=== PATIENT | male | born 1955 | race Hispanic/Latino ===

== ENCOUNTER 2017-01-25 14:23 | Observation (INO) | payer OTHER ==
[~2017-01-25] VITALS: Ht 165.1 cm; Wt 63.5 kg
--- NOTE | 2017-01-25 15:04 | ED GI/GU/ABDOMINAL COMPLAINT ---
See Addendum History of Present Illness General Chief Complaint: Abdominal Pain/Flank Pain Stated Complaint: ABD PAIN? Source: patient Exam Limitations: language barrier Vital Signs & Intake/Output Vital Signs & Intake/Output Vital Signs Date Time Temp Pulse Resp B/P B/P Pulse O2 O2 Flow FiO2 Mean Ox Delivery Rate 01/25 1938 97.8 62 18 147/90 97 Room Air 01/25 1637 68 16 142/78 98 Room Air 01/25 1430 99.1 96 20 160/98 97 Room Air Allergies Coded Allergies: No Known Allergies (01/25/17) Reconcile Medications No Known Home Medications Triage Note: PT C/O RIGHT LOWER ABDOMINAL PAIN THAT RADIATES INTO RIGHT GROIN. PT STATES HE WAS SEEN FOR IT AND WAS TOLD HE HAS A HERNIA AND TO WAIT TO GET IT RAPAIRED. PT STATES IT HAS GROWN BIGGER. Triage Nurses Notes Reviewed? yes Duration: day(s): Quality/Severity: moderate, sharpness Location: groin Radiation: no radiation Activities at Onset: none Prior Abdominal Problems: none No Modifying Factors: none HPI: 61-year-old male comes into the emergency room with complaints of right inguinal pain. Symptoms of a going on for the past year but got worse over the past few weeks. He was told he had a hernia. He had seen his doctor previously. He reports increased swelling and pain. No fever. (Yuan Kiran) Past History Travel History Traveled to [place] past 21 day No Medical History Any Pertinent Medical History? none Surgical History Surgical History: none Psychosocial History What is your primary language [place]ian Tobacco Use: Current Not Daily ETOH Use: occasional use Illicit Drug Use: denies illicit drug use Family History Hx Contributory? No (Yuan Kiran) Review of Systems Review of Systems Constitutional: Reports: no symptoms. EENTM: Reports: no symptoms. Respiratory: Reports: no symptoms. Cardiovascular: Reports: no symptoms. GI: Reports: see HPI. Genitourinary: Reports: see HPI. Musculoskeletal: Reports: no symptoms. Skin: Reports: no symptoms. Neurological/Psychological: Reports: no symptoms. Hematologic/Endocrine: Reports: no symptoms. Immunologic/Allergic: Reports: no symptoms. All Other Systems: Reviewed and Negative (Yuan Kiran) Physical Exam Physical Exam General Appearance: well developed/nourished, alert, awake Head: atraumatic Eyes: Bilateral: normal appearance. Ears, Nose, Throat, Mouth: hearing grossly normal, moist mucous membrane Neck: normal inspection Respiratory: no respiratory distress Cardiovascular: regular rate/rhythm Gastrointestinal: soft, testicular swelling on right side, right sided groin pain/abdominal pain, large palpable hernia Male Genitals: hernia, scrotum tenderness (R) Back: normal inspection Extremities: normal range of motion Neurologic/Psych: awake, alert Skin: intact Core Measures ACS in differential dx? No Sepsis Present: No Sepsis Focused Exam Completed? No (Ruperto LOVE,Yuan) Progress Differential Diagnosis: hernia, urinary retention, urethritis, UTI/pyelo, incarcerated hernia, strangulated hernia Plan of Care: Orders Procedure Date/time Status LACTIC ACID 01/25 1753 Active URINALYSIS 01/25 1453 Complete LIPASE 01/25 1453 Complete LACTIC ACID 01/25 1453 Complete COMPREHENSIVE METABOLIC PANEL 01/25 1453 Complete CBC WITHOUT DIFFERENTIAL 01/25 1453 Complete Current Medications Sig/Mick Start time Last Medication Dose Stop Time Status Admin Sodium Chloride 1,000 ML ONCE ONE 01/25 1830 AC 01/25 (Normal Saline 0.9%) 01/26 0749 1827 Laboratory Tests 01/25/17 1600: Urine Color YEL, Urine Clarity CLEAR, Urine pH 6.0, Ur Specific [place] 1.015, Urine Protein NEG, Urine Ketones NEG, Urine Nitrite NEG, Urine Bilirubin NEG, Urine Urobilinogen 0.2, Ur Leukocyte Esterase NEG, Ur Microscopic EXAM NOT REQUIRED, Urine Hemoglobin NEG, Urine Glucose NEG 01/25/17 1513: Anion Gap 11, Estimated GFR > 60, BUN/Creatinine Ratio 16.3, Glucose 104 H, Lactic Acid 1.0, Calcium 10.0, Total Bilirubin 0.4, AST 48, ALT 67, Alkaline Phosphatase 85, Total Protein 7.9, Albumin 4.4, Globulin 3.5, Albumin/Globulin Ratio 1.3, Lipase 78, CBC w Diff NO MAN DIFF REQ, RBC 4.98, MCV 95.6 H, MCH 32.4 H, RDW 13.2, MPV 8.9, Gran % 64.1, Lymphocytes % 21.7, Monocytes % 12.9 H , Eosinophils % 1.0, Basophils % 0.3, Absolute Granulocytes 4.7, Absolute Lymphocytes 1.6, Absolute Monocytes 1.0 H, Absolute Eosinophils 0.1, Absolute Basophils 0, PUBS MCHC 33.9 Diagnostic Imaging: Viewed by Me: CT Scan. Discussed w/RAD: CT Scan. Radiology Impression: PATIENT: YUMIKO DUKE PRESENT AGE: 61 PATIENT ACCOUNT NO: [id number] : 59 LOCATION: [facility] ORDERING PHYSICIAN: Yuan LOVE SERVICE DATE: 01/25/17 EXAM TYPE: CAT - CT ABD & PELVIS W IV CONTRAST EXAMINATION: CT ABDOMEN AND PELVIS WITH CONTRAST CLINICAL INFORMATION: Right groin pain. Lower abdominal pain. COMPARISON: None TECHNIQUE: Multidetector volumetric imaging was performed of the abdomen and pelvis following IV administration of 94 mL of Optiray 320 intravenous contrast. Sagittal and coronal reformatted images were obtained on the technologist's workstation. DLP: 356.52 mGy-cm FINDINGS: LUNG BASES: The visualized lung bases are unremarkable. LIVER, GALLBLADDER, AND BILIARY TREE: Low attenuation of liver parenchyma due to fatty change. No focal liver lesion. No intrapelvic bile duct dilatation. Right lobe liver measures 20 cm superior inferior. The gallbladder is unremarkable with no evidence of radiopaque gallstones, gallbladder wall thickening, or obvious pericholecystic inflammatory changes. PANCREAS: Unremarkable. SPLEEN: Unremarkable. ADRENAL GLANDS: Unremarkable. KIDNEYS AND URETERS: The kidneys are normal in size, shape, and attenuation. No hydronephrosis, hydroureter, or calculi seen. No perinephric stranding. BLADDER: There is mild bladder wall thickening diffusely though the bladder is only partially filled. No inflammation around the bladder. ABDOMINAL WALL/MESENTERY/ GASTROINTESTINAL TRACT: There is a right inguinal hernia. This is a large hernia measuring about 5.5 cm transverse. This hernia contains nonobstructive loops of small bowel. There is no bowel wall thickening or edema. No bowel obstruction. No acute change of large bowel. Scattered stool in the colon. There is some diverticula left colon but no diverticulitis. The appendix is normal. No inflammation of the mesentery. No free air. LYMPH NODES: Normal. VASCULAR: Unremarkable. PELVIC VISCERA: Small coarse calcifications within the prostate. OSSEOUS STRUCTURES: Mild degenerative lipping at the anterior endplates of lower thoracic and upper lumbar vertebrae of degenerative disc disease. IMPRESSION: 1. Large right inguinal hernia containing nonobstructive small bowel loops. 2. Diffuse fatty change of liver. DICTATED BY: Palomo Latham MD DATE/TIME DICTATED: 01/25/171703 BOTTOMING ROOM INSPECTOR:STEPHANIE DATE/TIME TRANSCRIBED:01/25/171703 CONFIDENTIAL, DO NOT COPY WITHOUT APPROPRIATE AUTHORIZATION. <Electronically signed in Other Vendor System> SIGNED BY: Palomo Latham MD 01/25/171713 Initial ED EKG: none Comments: 01/25/2017 7:52:[address] Collazo. Patient will require surgery of inguinal hernia. High risk. (Yuan Kiran) Departure Departure Disposition: STILL A PATIENT Condition: Stable Clinical Impression Primary Impression: Right inguinal hernia Referrals: Patient Has No Primary Care Dr (PCP/Family) Departure Forms: Customer Survey General Discharge Information Prescriptions: Current Visit Scripts No Known Home Medications (Yuan Kiran) PA/PERINATAL INSTRUCTOR Co-Sign Statement Statement: ED Attending supervision documentation- I saw and evaluated the patient. I have also reviewed all the pertinent lab results and diagnostic results. I agree with the findings and the plan of care as documented in the PA's/PERINATAL INSTRUCTOR's documentation. x I have reviewed the ED Record and agree with the PA's/PERINATAL INSTRUCTOR's documentation. [] Additions or exceptions (if any) to the PAs/PERINATAL INSTRUCTOR's note and plan are summarized below: [] (Chad HARMAN,Joseph) ED Attending Observation Initial Observation Note: I have seen and personally examined YUMIKO DUKE on 01/25/17 at 1952. I agree with the current emergency department documentation. The disposition (admission or discharge) is uncertain at this time, he needs a period of observation for the following reason(s): The ED Nurse caring for this patient has been personally informed as to what the patient is being observed for. (Yuan Kiran)
[2017-01-25 15:28] LABS: ABSOLUTE BASOPHIL COUNT 0 /CUMM (0.0-0.2); ABSOLUTE EOSINOPHIL COUNT 0.1 /CUMM (0.0-0.7); ABSOLUTE GRANULOCYTE CT 4.7 /CUMM (1.4-6.5); ABSOLUTE LYMPH COUNT 1.6 /CUMM (1.2-3.4); BASOPHIL % 0.3 % (0.0-2.0); GRANULOCYTE % 64.1 % (42.2-75.2); HEMATOCRIT 47.6 % (42-52); MEAN CORPUSCULAR HGB 32.4 PG (27.0-31.0); MEAN CORPUSCULAR HGB CONC 33.9 G/DL (33.0-37.0); MEAN CORPUSCULAR VOLUME 95.6 FL (80.0-94.0); MEAN PLATELET VOLUME 8.9 FL (7.4-10.4); PLATELET COUNT 243 /CUMM (130-400); RBC DISTRIBUTION WIDTH 13.2 % (11.5-14.5); RED BLOOD CELL CT 4.98 /CUMM (4.70-6.10); WHITE BLOOD CELL COUNT 7.4 /CUMM (4.8-10.8)
--- NOTE | 2017-01-25 17:14 | CT SCAN REPORT ---
EXAMINATION: CT ABDOMEN AND PELVIS WITH CONTRAST CLINICAL INFORMATION: Right groin pain. Lower abdominal pain. COMPARISON: None TECHNIQUE: Multidetector volumetric imaging was performed of the abdomen and pelvis following IV administration of 94 mL of Optiray 320 intravenous contrast. Sagittal and coronal reformatted images were obtained on the technologist's workstation. DLP: 356.52 mGy-cm FINDINGS: LUNG BASES: The visualized lung bases are unremarkable. LIVER, GALLBLADDER, AND BILIARY TREE: Low attenuation of liver parenchyma due to fatty change. No focal liver lesion. No intrapelvic bile duct dilatation. Right lobe liver measures 20 cm superior inferior. The gallbladder is unremarkable with no evidence of radiopaque gallstones, gallbladder wall thickening, or obvious pericholecystic inflammatory changes. PANCREAS: Unremarkable. SPLEEN: Unremarkable. ADRENAL GLANDS: Unremarkable. KIDNEYS AND URETERS: The kidneys are normal in size, shape, and attenuation. No hydronephrosis, hydroureter, or calculi seen. No perinephric stranding. BLADDER: There is mild bladder wall thickening diffusely though the bladder is only partially filled. No inflammation around the bladder. ABDOMINAL WALL/MESENTERY/GASTROINTESTINAL TRACT: There is a right inguinal hernia. This is a large hernia measuring about 5.5 cm transverse. This hernia contains nonobstructive loops of small bowel. There is no bowel wall thickening or edema. No bowel obstruction. No acute change of large bowel. Scattered stool in the colon. There is some diverticula left colon but no diverticulitis. The appendix is normal. No inflammation of the mesentery. No free air. LYMPH NODES: Normal. VASCULAR: Unremarkable. PELVIC VISCERA: Small coarse calcifications within the prostate. OSSEOUS STRUCTURES: Mild degenerative lipping at the anterior endplates of lower thoracic and upper lumbar vertebrae of degenerative disc disease. IMPRESSION: 1. Large right inguinal hernia containing nonobstructive small bowel loops. 2. Diffuse fatty change of liver.
--- NOTE | 2017-01-25 19:24 | History & Physical Pre-Op ---
General Information and HPI MD Statement: I have seen and personally examined YUMIKO DUKE and documented this H&P. The patient is a 61 year old M who presented with a patient stated chief complaint of []. Exam Limitations: language barrier History of Present Illness: CC: Hernia HPI: A 61-year-old there is some language barrier but he still able to give a history otherwise healthy nondiabetic denies smoking no medications works with his hands construction heavy labor he's had a right inguinal hernia he thinks for a few years but it's gradually enlarging hurts in his scrotum and for the past couple of days as her a lot more he woke up this morning with lower abdominal pain came to emergency room he is unable to lift anything without pain , in the ER the physician was able to reduce it patient states it does come and and out getting larger, no recent coughing spells he denies any constipation difficulty voiding no prostate problems. Otherwise no changes bowel habits, weight or appetite. I've reviewed the [facility]. No history of GERD, PUD, bleeding problems, heart disease or issues with anesthesia. Past surgical history no prior abdominal surgery, family history no family history of hernias diabetes cancer or heart disease Allergies/Medications Allergies: Coded Allergies: No Known Allergies (01/25/17) Home Med list No Known Home Medications Past History Surgical History Pertinent Surgical History: none Past Family/Social History Psychosocial History ETOH Use: occasional use Illicit Drug Use: denies illicit drug use Review of Systems Review of Systems: Constitutional: No fever, sweats or weight loss ENMT: No sore throat Cardiovascular: No chest pain, palpitations or leg swelling Respiratory: No shortness of breath, cough, or sputum or dyspnea on exertion GI: No GERD or bleeding per rectum : No dysuria or hematuria Musculoskeletal: No new muscle weakness, bone or joint pain Skin / Breast: No jaundice, rashes or itching Psychiatric: No history of drug or alcohol abuse no depression or anxiety Hematologic / lymphatic system: No problems with excessive bleeding, bruising, or blood clots Exam & Diagnostic Data Last 24 Hrs of Vital Signs/I&O I rviewed Vital Signs Date Time Temp Pulse Resp B/P B/P Pulse O2 O2 Flow FiO2 Mean Ox Delivery Rate 01/25 1637 68 16 142/78 98 Room Air 01/25 1430 99.1 96 20 160/98 97 Room Air I reviewed Intake & Output 01/25 1600 01/25 0800 01/25 0000 Intake Total Output Total Balance Patient 140 lb Weight Weight Reported by Patient Measurement Method Physical Exam: Constitutional: pleasant, no acute distress, conversant Eyes: sclera anicteric ENMT: ears and nose atraumatic, moist mucous membranes, good dentition, no lip lesions Neck: Supple, trachea is midline, no cervical or supraclavicular adenopathy and no palpable thyromegaly Cardiovascular: S1, S2, no murmurs, no peripheral edema Respiratory: clear to auscultation with normal respiratory effort and no intercostal retractions GI: abdomen soft, nontender, nondistended, no palpable hepatosplenomegaly Large right inguinal hernia reducible no erythema minimally tender Extremities / lymphatics: symmetrically warm, free range of motion no peripheral edema, no cervical, supraclavicular, axillary, or inguinal adenopathy Musculoskeletal: Did not evaluate gait and station, no digital cyanosis, good muscle strength and tone no atrophy, motor grossly 5 out of 5 throughout Skin: no jaundice, no rashes warm, nondiaphoretic, no areas of erythema or induration Psychiatric: mood and affect are appropriate and alert and oriented to person place and time Last 24 Hrs of Labs/Brian: I reviewd Laboratory Tests 01/25/17 1600: Urine Color YEL, Urine Clarity CLEAR, Urine pH 6.0, Ur Specific [place] 1.015, Urine Protein NEG, Urine Ketones NEG, Urine Nitrite NEG, Urine Bilirubin NEG, Urine Urobilinogen 0.2, Ur Leukocyte Esterase NEG, Ur Microscopic EXAM NOT REQUIRED, Urine Hemoglobin NEG, Urine Glucose NEG 01/25/17 1513: Anion Gap 11, Estimated GFR > 60, BUN/Creatinine Ratio 16.3, Glucose 104 H, Lactic Acid 1.0, Calcium 10.0, Total Bilirubin 0.4, AST 48, ALT 67, Alkaline Phosphatase 85, Total Protein 7.9, Albumin 4.4, Globulin 3.5, Albumin/Globulin Ratio 1.3, Lipase 78, CBC w Diff NO MAN DIFF REQ, RBC 4.98, MCV 95.6 H, MCH 32.4 H, RDW 13.2, MPV 8.9, Gran % 64.1, Lymphocytes % 21.7, Monocytes % 12.9 H , Eosinophils % 1.0, Basophils % 0.3, Absolute Granulocytes 4.7, Absolute Lymphocytes 1.6, Absolute Monocytes 1.0 H, Absolute Eosinophils 0.1, Absolute Basophils 0, PUBS MCHC 33.9 Assessment/Plan Assessment/Plan: I reviewed his CT scan on PACS myself showing bowel and a scrotal hernia on the right Impression is large worsening inguinoscrotal hernia, keep in observation status. The current standard of care is repair with mesh, preferably not emergently. We usually approach these laparoscopically if possible, because of shorter recovery and less of a risk of infected seroma. I explained that hernias do not heal themselves, often enlarge, and can get complicated especially if bowel gets suddenly caught in there, it could become irreversibly injured, leading to emergency surgery and associated morbidity. This event is rare and unpredictable but we recommend repair anyway because results are usually better when these are repaired while smaller. I marianne a diagram illustrating the anatomy of the hernia and where the mesh is placed. Avoiding recurrence is the main objective of the repair and avoiding straining postop (ie lifting, constipation from analgesics). Other risks were also discussed such as infection, especially of the mesh which can lead to reoperations and morbidity, injury to other surrounding structures such as bowel, bladder, blood vessels, and nerves (which could lead to chronic pain), postop urinary retention (usually self limited but more common if underlying prostate disease). We also discussed the potential risks, benefits and alternatives to the procedure and surgery in general, issues that included but were not limited to, anesthetic risk, hemorrhage requiring transfusion, the risk of transfusion itself, infection, heart attack, stroke, . In this case there may be an increased risk of conversion to open because of the size and extent but even so we proceeded laparoscopically initially because often you are able to repair from that approach. I would expect a prolonged postoperative seroma As Ranked By This Provider Problem List: 1. Right inguinal hernia
[2017-01-26 11:52] VITALS: BP 139/89
--- NOTE | 2017-01-26 17:17 | Operative Report ---
Operative/Inv Procedure Report Surgery Date: 01/26/17 Name of Procedure: Laparoscopic TEPP mesh repair of R ing-scrotal hernia Pre-Operative Diagnosis: Right inguinoscrotal hernia Post-Operative Diagnosis: Same Estimated Blood Loss: scant Surgeon/Terminal Operator: MD Tmoi Monique Anesthesia: general endotracheal tube Operative/Procedure Note Note: Patient was positioned supine on the table. This was a large scrotal hernia but we were able to reduce it. After successful induction of general anesthesia the inguinal and surrounding areas were clipped prepped and draped in the usual sterile fashion. After injection of local anesthetic at the bottom of the umbilicus off the midline to the right, a 1 1/2 cm curved incision was made with a 15 blade, then deepened through Niderjit's fascia, sweeping off the rectus sheath. A horizontal 1-1/2 cm incision was made between the fibers, elevating these edges with 0 Vicryl stay sutures. Then retracting the muscle laterally, clearing off the posterior rectus sheath, this space is developed down the midline to the pubis sequentially, with an S retractor, a peanut dissector, then the balloon-camera device, inflating it 30-40 pumps while watching how it opens up the space, keeping the epigastrics up. The balloon is then replaced with a 10 mm Collins trocar, inserted, shortened, and secured with the stay sutures, gas turned on to 12 not 15 mm. Then two 5 mm trochars are inserted in the midline just below the camera, spaced by approximately 3 cm. Using mostly blunt dissection with peanuts to define the anatomy, first Roger's ligament is swept off medially, checking the medial spaces, direct and femoral. There were no hernias there. Then briefly skipping over the area of the iliac fat pad, we developed the iliopubic tract out laterally to the iliac crest. Then we returned to the area of the fat pad where the hernia sac and the cord structures are adherent, coursing up into an attenuated deep ring. The cord structures form a triangle with the vas approaching medially and the main vessels approaching laterally, with the apex at the deep ring. There was some preperitoneal fat up inside in front that was dragged down and out, helping identify the distal lip of the hernia sac, which is then carefully peeled off the cord structures, especially the vas. The cord is also from the underlying iliac fat. Once the hernia sac is from the cord structures down to the base of this "triangle," a Parietex sided mesh with the suture, is marked and stuffed down the camera trocar, then unfurled in a systematic fashion , first with the smaller leaflet passing behind the cord structures, until the flap covers the epigastrics, covering the deep ring, then the larger leaflet is released from the suture, double-covering the smaller one, but also extends laterally out to the iliac crest, medially over Roger's ligament, and superiorly towards the camera. There is a third part of the mesh, that covers the iliac fat pad like a skirt. The mesh was adjusted back and forth so that the keyhole is centered around the cord, lays flat and the edges are not curling. A trial run of letting the gas escape a little bit to see how the mesh would lay as the peritoneum comes back down is done, then when we're satisfied, we let rest of the gas escape, pulling out the instruments and trochars. The fascia is closed with a [id number] 0 Vicryl suture, tying the stay sutures on top. Then we closed the 3 skin incisions with interrupted 4-0 Monocryl, 3 for the umbilical, one each for the smaller ones, followed by Mastisol, Steri-Strips and Band-Aids. Overall estimated blood loss was minimal, lap and sponge counts were correct, wound expectancy was clean, IV fluids crystalloid, complications none, patient tolerated the procedure well, did not significantly chase during extubation and was returned to the recovery room in satisfactory condition.
== END 2017-01-26 12:00 ==
LOC: ERH 14:23 → ERHI 21:03
PROVIDERS: Physician Assistant Medical
DX: K40.90 Unilateral inguinal hernia, without obstruction or gangrene, not specified as recurrent (principal)
CPT/HCPCS: 74177; 81003; 93005; 93010; C1781; J0690